=== PATIENT | female | born 1990 | race Caucasian/White ===

== ENCOUNTER 2017-01-04 19:59 | Emergency (ER) | payer OTHER ==
[~2017-01-04] VITALS: Ht 170.2 cm; Wt 82.1 kg
[~2017-01-04 19:59] MED LIST: CEPHALEXIN500 MG PO; IBUPROFEN600 MG PO; KEFLEX500 MG PO; NORCO 5-325 TA1 EACH PO; PNV 29-1 TABLE1 EACH PO; PRENATAL-FOLIC1 EACH PO; PYRIDIUM200 MG PO; UNISOM SLEEP AI25 MG PO; VITAMIN B-650 MG PO
[2017-01-04] MEDS ORDERED: PYRIDIUM200 MG PO (21:28)
[2017-01-04] MEDS ORDERED: KEFLEX500 MG PO (21:28)
== END 2017-01-04 21:44 | disposition home or self-care (01) ==
LOC: ED 19:59
DX: N39.0 Urinary tract infection, site not specified (principal); F17.200 Nicotine dependence, unspecified, uncomplicated
CPT/HCPCS: 81001; 84703; 87077; 87088; 87186; 99282

== ENCOUNTER 2017-11-28 18:38 | Emergency (ER) | payer OTHER ==
[~2017-11-28] VITALS: Ht 170.2 cm; Wt 82.1 kg
[2017-11-28] MEDS ORDERED: NEXPLANON68 MG SUB-Q (18:48)
[2017-11-28] MEDS ORDERED: AUGMENTIN 875-1 EACH PO (19:28)
== END 2017-11-28 19:52 | disposition home or self-care (01) ==
LOC: ED 18:38
PROC: 0HQ1XZZ Repair Face Skin, External Approach (ICD-10-PCS; principal; 2017-11-28)
DX: S01.451A Open bite of right cheek and temporomandibular area, initial encounter (principal); S01.411A Laceration without foreign body of right cheek and temporomandibular area, initial encounter; F17.200 Nicotine dependence, unspecified, uncomplicated; Z79.899 Other long term (current) drug therapy; W54.0XXA Bitten by dog, initial encounter
CPT/HCPCS: 12011; 99283

== ENCOUNTER 2018-08-29 23:23 | Emergency (ER) | payer OTHER ==
[~2018-08-29] VITALS: Ht 170.2 cm; Wt 90.7 kg
[~2018-08-29 23:23] MED LIST changes: +AUGMENTIN 875-1 EACH PO; +NEXPLANON68 MG SUB-Q
== END 2018-08-30 00:36 | disposition home or self-care (01) ==
LOC: ED 23:23
DX: S93.402A Sprain of unspecified ligament of left ankle, initial encounter (principal); F17.200 Nicotine dependence, unspecified, uncomplicated; W01.0XXA Fall on same level from slipping, tripping and stumbling without subsequent striking against object, initial encounter
CPT/HCPCS: 73610; 96372; 99283-25; J1885

== ENCOUNTER 2018-11-14 17:42 | Emergency (ER) | payer OTHER ==
[~2018-11-14] VITALS: Ht 170.2 cm; Wt 92.1 kg
== END 2018-11-14 20:22 | disposition home or self-care (01) ==
LOC: ED 17:42
DX: S30.1XXA Contusion of abdominal wall, initial encounter (principal); F17.200 Nicotine dependence, unspecified, uncomplicated; W22.8XXA Striking against or struck by other objects, initial encounter; Y92.828 Other wilderness area as the place of occurrence of the external cause
CPT/HCPCS: 71045; 74177; 80053; 81001; 83690; 84703; 85025; 96374; 96375; 99284-25; J2270; J2405; J3010; Q9967

== ENCOUNTER 2019-10-05 00:04 | Inpatient (IN) | payer OTHER ==
[~2019-10-05] VITALS: Ht 170.2 cm; Wt 110.0 kg
[2019-10-05] MEDS ORDERED: PRENATAL VITAM1 EACH PO (01:18)
--- NOTE | 2019-10-05 08:12 | PR ---
[facility] [address] [facility] [place], [place] [address] Signed Progress Notes IP Datetime Report Generated by CPN: 10/05/2019 08:12 PROGRESS NOTES: [id number] Impression: Normal progression of labor Procedures: Artificial ROM Plan: Continue present management; Anticipate Vaginal Delivery VITAL SIGNS: [id number] Vital Signs: Reviewed; Within Normal Limits EXAM: [id number] Dilatation: 3.0 Effacement: 60 Station: -2 MEMBRANES: [id number] Membrane Status: Ruptured Amniotic Fluid Color: Clear ROM Note: AROM with small amount clear fluid Comments: Doing well, would like Epidural later Fetus A: [id number] FHR Baseline: 125 Variability: Moderate 6-25bpm Accelerations: 15X15 Presentation: Vertex Fetus B: [id number] Signing Physician: Steve Medrano MD Copies: ~ *Electronically Signed* 10/05/19811 STEVE MEDRANO MD PATIENT NAME: STEVEDOUGLASROMA OSMAR PROGRESS NOTE DATE OF : [birth year] PHYSICIAN: STEVE MEDRANO MD RPT #: [id number] REPORT IS CONFIDENTIAL AND NOT TO BE RELEASED WITHOUT AUTHORIZATION
--- NOTE | 2019-10-05 12:26 | PR ---
[facility] [address] [facility] [place], [place] [address] Signed Progress Notes IP Datetime Report Generated by CPN: 10/05/2019 12:26 PROGRESS NOTES: [id number] Impression: Normal progression of labor Procedures: Epidural Placement Plan: Continue present management; Anticipate Vaginal Delivery VITAL SIGNS: [id number] Vital Signs: Reviewed; Within Normal Limits EXAM: [id number] Dilatation: 7.0 Effacement: 80 Station: -1 Uterine Contractions: every 2-4 minutes MEMBRANES: [id number] Membrane Status: Ruptured Amniotic Fluid Color: Clear ROM Note: AROM with small amount clear fluid Comments: Comfortable with Epidural. Fetus A: [id number] FHR Baseline: 120 Variability: Moderate 6-25bpm Accelerations: 15X15 Presentation: Vertex Fetus B: [id number] Signing Physician: Jorge Alberto Medrano MD Copies: ~ *Electronically Signed* 10/05/19 1226 JORGE ALBERTO MEDRANO MD PATIENT NAME: JORGE ALBERTOROMA PROGRESS NOTE DATE OF : [birth year] PHYSICIAN: JORGE ALBERTO MEDRANO MD RPT #: [id number] REPORT IS CONFIDENTIAL AND NOT TO BE RELEASED WITHOUT AUTHORIZATION
--- NOTE | 2019-10-05 13:14 | PR ---
[facility] [address] [place], [place] [address] Signed Progress Notes IP Datetime Report Generated by CPN: 10/05/2019 13:14 PROGRESS NOTES: [id number] Impression: Normal progression of labor Procedures: Epidural Placement Plan: Continue present management; Anticipate Vaginal Delivery VITAL SIGNS: [id number] Vital Signs: Reviewed; Within Normal Limits EXAM: [id number] Dilatation: 10.0 Effacement: 100 Station: 0 Uterine Contractions: every 2-3 minutes MEMBRANES: [id number] Membrane Status: Ruptured Amniotic Fluid Color: Clear ROM Note: AROM with small amount clear fluid Comments: Complete, but tried to push, unable to feel anything or push effectively. Epidural decreased to 1/2 rate. WIll allow to labor before pushing, since so numb. Discussed with patient; let us know as soon as feeling anything. Fetus A: [id number] FHR Baseline: 120 Variability: Moderate 6-25bpm Accelerations: 15X15 Presentation: Vertex Fetus B: [id number] Signing Physician: Jorge Alberto Medrano MD Copies: ~ *Electronically Signed* 10/05/19 1314 JORGE ALBERTO MEDRANO MD PATIENT NAME: ROMA AZUL PROGRESS NOTE DATE OF : [birth year] PHYSICIAN: JORGE ALBERTO MEDRANO MD RPT #: [id number] REPORT IS CONFIDENTIAL AND NOT TO BE RELEASED WITHOUT AUTHORIZATION
--- NOTE | 2019-10-06 07:48 | PR ---
[facility] [address] [facility] [place] [address] Signed PP Progress Notes Datetime Report Generated by CPN: 10/06/2019 07:48 SUBJECTIVE: [id number] Pain: Within normal limits Nausea/Vomiting: Denies Vital Signs: [id number] Vital Signs: Reviewed; Within Normal Limits Notable Details: PP Hgb/Hct = 11.6/34.0 EXAM: [id number] Abdomen/Uterus: Normal Lochia: Normal Extremities: Normal IMPRESSION/PLAN/PROCEDURES: [id number] Impression: Normal progression Plan: Discharge Procedures: None Progress Notes: Doing well, without complaint, wants to go home. Signing Physician: Jorge Alberto Medrano MD Copies: ~ *Electronically Signed* 10/06/19 0748 JORGE ALBERTO MEDRANO MD PATIENT NAME: ROMA AZUL PROGRESS NOTE DATE OF : [birth year] PHYSICIAN: JORGE ALBERTO MEDRANO MD RPT #: [id number] REPORT IS CONFIDENTIAL AND NOT TO BE RELEASED WITHOUT AUTHORIZATION
== END 2019-10-06 15:44 | disposition home or self-care (01) | DRG 807 ==
LOC: FBC 00:04
PROVIDERS: ADMIT General Practice
PROC: 10E0XZZ Delivery of Products of Conception, External Approach (ICD-10-PCS; principal; 2019-10-05)
PROC: 10907ZC Drainage of Amniotic Fluid, Therapeutic from Products of Conception, Via Natural or Artificial Opening (ICD-10-PCS; 2019-10-05)
PROC: 00HU33Z Insertion of Infusion Device into Spinal Canal, Percutaneous Approach (ICD-10-PCS; 2019-10-05)
PROC: 3E0R3BZ Introduction of Anesthetic Agent into Spinal Canal, Percutaneous Approach (ICD-10-PCS; 2019-10-05)
DX: O69.1XX0 Labor and delivery complicated by cord around neck, with compression, not applicable or unspecified (principal); Z37.0 Single live birth; Z3A.39 39 weeks gestation of pregnancy
CPT/HCPCS: 01960; 36415; 85027; A9270; J2590; J2795

== ENCOUNTER 2022-01-17 12:23 | Emergency (ER) | payer OTHER ==
[~2022-01-17] VITALS: Ht 170.2 cm; Wt 72.8 kg
[~2022-01-17 12:23] MED LIST changes: +PRENATAL VITAM1 EACH PO
[2022-01-17] MEDS ORDERED: ZOLOFT50 MG PO (12:41)
[2022-01-17] MEDS ORDERED: PENICILLIN V P500 MG PO (12:49)
== END 2022-01-17 12:56 | disposition home or self-care (01) ==
LOC: ED 12:23
DX: K04.7 Periapical abscess without sinus (principal); F17.200 Nicotine dependence, unspecified, uncomplicated
CPT/HCPCS: 99283

== ENCOUNTER 2022-01-19 09:56 | Emergency (ER) | payer OTHER ==
[~2022-01-19] VITALS: Ht 170.2 cm; Wt 72.6 kg
[~2022-01-19 09:56] MED LIST changes: +PENICILLIN V P500 MG PO; +ZOLOFT50 MG PO
--- OUTSIDE RECORDS SUMMARY | 2022-01-19 10:04 | XMS ---
PreManage Notification: ROMA AZUL Security 3D Animator Events No recent Security Events currently on file CRITERIA MET - [facility] - 2 Visits in 30 Days CARE PROVIDERS There are no care providers on record at this time. Jefry has no Care Guidelines for this patient. [facility] VISIT COUNT (12 MO.) [address] [facility] [place] TOTAL 2 NOTE: Visits indicate total known visits. [facility] VIS[facility] TRACKING (12 MO.) 01/19/2022 09:[address] [facility] [place] TYPE: Emergency COMPLAINT: - SKIN PROBLEM 01/17/2022 12:25 [facility] [place] TYPE: Emergency COMPLAINT: - DENTAL ISSUE INPATIENT VISIT TRACKING (12 MO.) No inpatient visits to display in this time frame [email or web address]
[2022-01-19] MEDS ORDERED: CLEOCIN HCL300 MG PO (11:37)
[2022-01-19] MEDS ORDERED: HYDROCODON-ACE1 EA10 PO (11:37)
== END 2022-01-19 11:54 | disposition home or self-care (01) ==
LOC: ED 09:56
PROC: 0C9WXZ0 Drainage of Upper Tooth, External Approach, Single (ICD-10-PCS; principal; 2022-01-19)
DX: K04.7 Periapical abscess without sinus (principal); F17.200 Nicotine dependence, unspecified, uncomplicated
CPT/HCPCS: 10160; 99282-25; A9270

== ENCOUNTER 2022-01-23 21:16 | Emergency (ER) | payer OTHER ==
[~2022-01-23] VITALS: Ht 170.2 cm; Wt 72.6 kg
[~2022-01-23 21:16] MED LIST changes: +CLEOCIN HCL300 MG PO; +HYDROCODON-ACE1 EA10 PO
[2022-01-24] MEDS ORDERED: HYDROCODON-ACE1 EA10 PO (00:42)
[2022-01-24] MEDS ORDERED: AMOX TR-K CLV1 EAC1 PO (00:42)
== END 2022-01-24 01:04 | disposition home or self-care (01) ==
LOC: ED 21:16
DX: K04.7 Periapical abscess without sinus (principal); F17.200 Nicotine dependence, unspecified, uncomplicated
CPT/HCPCS: 36415; 70487; 80053; 85025; 96375; 96376; 99283-25; J0696; J1170; J2405; J7030; Q9967

== ENCOUNTER 2023-07-21 17:19 | Emergency (ER) | payer OTHER ==
[~2023-07-21] VITALS: Ht 170.2 cm; Wt 64.4 kg
[~2023-07-21 17:19] MED LIST changes: +AMOX TR-K CLV1 EAC1 PO; +BENZTROPINE MESY1 MG PO; +CYCLOBENZAPRINE10 MG PO; +LAMICTAL25 MG PO; +MELOXICAM15 MG PO
[2023-07-21 17:32] LABS: RBC 4.03 M/ul (4.3-5.7)
[2023-07-21 17:34] LABS: BASOPHILS 0.8 % (0-2); EOSINOPHILS 2.2 % (0-6); HEMATOCRIT 38.9 % (35.0-50.0); HEMOGLOBIN 13.2 g/dL (12.0-18.0); MCH 32.8 (27-36); MCV 96.6 fl (81-99); MONOCYTES 5.3 % (0-12); NEUTROPHILS 48.7 % (39-80); PLATELET COUNT 227 K/uL (140-440); RDW 12.9 (10.5-15.0)
[2023-07-21] MEDS ORDERED: ondansetron HCL 4 MG/2 ML VIAL IV ONE (17:45)
[2023-07-21 17:54] LABS: ACETAMINOPHEN 0 ug/mL (10-30); ALBUMIN 3.2 g/dL (3.4-5.0); ALBUMIN/GLOBULIN RATIO 0.91 (1.1-2.4); ALCOHOL, MEDICAL 171 ng/dL (<3); ALKALINE PHOSPHATASE 41 U/L (46-116); ALT (SGPT) 14 U/L (14-59); ANION GAP 15.7 (7-21); AST (SGOT) 12 U/L (15-37); BILIRUBIN, TOTAL 0.3 ng/dL (0.2-1.0); BUN/CREATININE RATIO 7.79 (6.0-28.6); CALCIUM 8.3 mg/dL (8.5-10.1); CARBON DIOXIDE 24 mmol/L (21-32); CHLORIDE 108 mmol/L (98-107); CREATININE, SERUM 0.77 mg/dL (0.55-1.02); GLOMERULAR FILTRATION RATE,EST 105 mL/min (>60); POTASSIUM 3.7 mmol/L (3.5-5.1); PROTEIN, TOTAL 6.7 g/dL (6.4-8.2); SALICYLATE 3.5 mg/dL (2.8-20.0); UREA NITROGEN 6 mg/dL (7-18)
[2023-07-21 17:55] LABS: BILIRUBIN, URINE NEGATIVE (negative); BLOOD/HGB, URINE NEGATIVE (Negative); KETONE, URINE NEGATIVE (Negative); LEUK ESTERASE, URINE NEGATIVE (negative); NITRITE, URINE NEGATIVE (negative); PH, URINE 6.5 (5-7)
[2023-07-21 17:56] LABS: PREGNANCY TEST, URINE NEGATIVE (NEG)
[2023-07-21 18:11] LABS: AMPHETAMINES, URINE NEGATIVE (NEGATIVE); BARBITURATES, URINE NEGATIVE (NEGATIVE); BENZODIAZEPINE, URINE NEGATIVE (NEGATIVE); BUPRENORPHINE, URINE NEGATIVE (NEGATIVE); CANNABINOID, URINE NEGATIVE (NEGATIVE); COCAINE, URINE NEGATIVE (NEGATIVE); ECSTASY, URINE NEGATIVE (NEGATIVE); FENTANYL, URINE NEGATIVE (NEGATIVE); METHADONE, URINE NEGATIVE (NEGATIVE); OPIATES, URINE NEGATIVE (NEGATIVE); OXYCODONE, URINE NEGATIVE (NEGATIVE); PHENCYCLIDINE, URINE NEGATIVE (NEGATIVE)
[2023-07-21 18:45] LABS: INFLUENZA B NAA NEGATIVE (NEGATIVE); RESPIRATORY SYNCYTIAL VIR NAA NEGATIVE (NEGATIVE)
[2023-07-21 20:44] LABS: AMPHETAMINES, URINE NEGATIVE (NEGATIVE); BARBITURATES, URINE NEGATIVE (NEGATIVE); BENZODIAZEPINE, URINE NEGATIVE (NEGATIVE); BUPRENORPHINE, URINE NEGATIVE (NEGATIVE); CANNABINOID, URINE NEGATIVE (NEGATIVE); COCAINE, URINE NEGATIVE (NEGATIVE); ECSTASY, URINE NEGATIVE (NEGATIVE); FENTANYL, URINE NEGATIVE (NEGATIVE); METHADONE, URINE NEGATIVE (NEGATIVE); OPIATES, URINE NEGATIVE (NEGATIVE); OXYCODONE, URINE NEGATIVE (NEGATIVE); PHENCYCLIDINE, URINE NEGATIVE (NEGATIVE)
[2023-07-21] MEDS ORDERED: D5W 1/2 NS + 20 KCL 1,000 ML IV SCH (20:45)
--- NOTE | 2023-07-21 21:10 | EKG ---
[facility] [address] [facility] [place] [address] Signed Sinus bradycardia Low voltage QRS Borderline ECG No previous ECGs available Confirmed by Fabian Ibarra MD () on 07/21/2023 9:10:30 PM Electronically Signed By: FABIAN IBARRA MD 07/21/232109 PATIENT NAME: ROMA AZULELLE Electrocardiogram DATE OF : [birth year] PHYSICIAN: FABIAN IBARRA MD REPORT #: [id number] REPORT IS CONFIDENTIAL AND NOT TO BE RELEASED WITHOUT AUTHORIZATION
[2023-07-22 13:14] VITALS: BP 106/69
== END 2023-07-22 13:15 | disposition home or self-care (01) ==
LOC: ED 17:19
PROVIDERS: Emergency Medicine; Internal Medicine
DX: R45.851 Suicidal ideations (principal); F10.129 Alcohol abuse with intoxication, unspecified; F17.200 Nicotine dependence, unspecified, uncomplicated; Z79.899 Other long term (current) drug therapy
CPT/HCPCS: 36415; 51701; 71045; 80053; 80307; 81003; 82803; 84703; 85025; 87502; 93005; 93010; 99285-25; G0480; J2405; J3480; U0002

== ENCOUNTER 2023-12-09 06:48 | Day surgery (SDC) | payer OTHER ==
[~2023-12-09] VITALS: Ht 170.2 cm; Wt 81.8 kg
[2023-12-09] MEDS ORDERED: ondansetron HCL 4 MG/2 ML VIAL IV ONE (07:15)
[2023-12-09] MEDS ORDERED: DOXYCYCLINE HYCLATE 100 MG CAP PO ONE (07:15)
[2023-12-09] MEDS ORDERED: LIDOCAINE HCL 1% 5 ML SDV INJ ONE (07:15)
[2023-12-09] MEDS ORDERED: miSOPROStoL 200 MCG TAB SL ONE (07:15)
--- NOTE | 2023-12-09 07:19 | NUR ---
VISITED DURING SPIRITUAL CARE ROUNDS. PT DENIED IMMEDIATE NEEDS, NO INDICATIONS OF ANXIETY OR NERVOUSNESS. PROVIDED SUPPORTIVE PRESENCE, HOSPITALITY, PRAYER. PT EXPRESSED GRATITUDE.
[2023-12-09 07:23] VITALS: BP 113/66
[2023-12-09] MEDS ORDERED: LACTATED RINGER'S 1,000 ML IV SCH (07:30)
[2023-12-09] MEDS ORDERED: IBLOOD GLUCOSE TEST STRIP 1 EA TEST VI PRN ×2 (07:30→09:45)
[2023-12-09] MEDS ORDERED: fentaNYL citrate 100 MCG/2 ML VIAL ONE (08:17)
[2023-12-09] MEDS ORDERED: propofoL 200 MG/20 ML VIAL ONE (08:18)
[2023-12-09] MEDS ORDERED: LIDOCAINE HCL 2% 5 ML SDV ONE (08:18)
[2023-12-09] MEDS ORDERED: ondansetron HCL 4 MG/2 ML VIAL ONE (08:18)
[2023-12-09] MEDS ORDERED: ACETAMINOPHEN 1,000 MG/100 ML VIAL ONE (08:18)
[2023-12-09] MEDS ORDERED: DEXAMETHASONE SOD PHOS 4 MG/ML VIAL ONE (08:18)
[2023-12-09 08:24] LABS: AMPHETAMINES, URINE NEGATIVE (NEGATIVE); BARBITURATES, URINE NEGATIVE (NEGATIVE); BENZODIAZEPINE, URINE NEGATIVE (NEGATIVE); BUPRENORPHINE, URINE NEGATIVE (NEGATIVE); CANNABINOID, URINE POSITIVE (NEGATIVE); COCAINE, URINE POSITIVE (NEGATIVE); ECSTASY, URINE NEGATIVE (NEGATIVE); FENTANYL, URINE NEGATIVE (NEGATIVE); METHADONE, URINE NEGATIVE (NEGATIVE); OPIATES, URINE NEGATIVE (NEGATIVE); OXYCODONE, URINE NEGATIVE (NEGATIVE); PHENCYCLIDINE, URINE NEGATIVE (NEGATIVE)
[2023-12-09] MEDS ORDERED: METHYLERGONOVINE MALEATE 0.2 MG/ML AMP ONE (08:38)
[2023-12-09] MEDS ORDERED: OXYTOCIN 10 UNITS/ML VIAL ONE (08:39)
[2023-12-09] MEDS ORDERED: dexmedeTOMIDine HCl 200 MCG/2 ML VIAL ONE (08:58)
[2023-12-09] MEDS ORDERED: PHENYLEPHRINE HCL 10 MG/ML VIAL ONE (09:19)
[2023-12-09] MEDS ORDERED: SODIUM CHLORIDE 0.9% 20 ML IV ONE (09:21)
[2023-12-09] MEDS ORDERED: TRANEXAMIC ACID 1,000 MG/10 ML AMP ONE (09:25)
--- NOTE | 2023-12-09 09:41 | NUR ---
12/09/23 0941 Daisy Watts 0936-PATIENT ARRIVED TO PACU ON RA RR EVEN. PATIENT REACTIVE TO VERBAL STIMULI EYES CLOSED. PATIENT SHIVERING REPORTS "COLD" WARM BLANKETS AND FADIA PAW WARMER APPLIED. SR. IVF INFUSING LR WITH 30 PITOCIN. RIMA PAD SMALL AMT OF DRAINAGE. 0941-PATIENT NO LONGER SHIVERING SLEEPING RA 100% RR EVEN.
[2023-12-09] MEDS ORDERED: MEPERIDINE HCL 25 MG/1 ML VIAL IV PRN (09:45)
[2023-12-09] MEDS ORDERED: MORPHINE SULFATE 10 MG/ML VIAL IV PRN (09:45)
[2023-12-09] MEDS ORDERED: MAGNESIUM HYDROXIDE/AL HYDROX 30 ML CUP PO PRN (09:45)
[2023-12-09] MEDS ORDERED: METHYLERGONOVINE MALEATE 0.2 MG PO ONE (09:45)
[2023-12-09] MEDS ORDERED: NALOXONE HCL 0.4 MG SYR IV PRN (09:45)
[2023-12-09] MEDS ORDERED: FAMOTIDINE 20 MG TAB PO PRN (09:45)
[2023-12-09] MEDS ORDERED: fentaNYL citrate 50 MCG/ML SDV IV PRN (09:45)
[2023-12-09] MEDS ORDERED: METOCLOPRAMIDE HCL 10 MG/2 ML SDV IV PRN (09:45)
[2023-12-09] MEDS ORDERED: KETOROLAC TROMETHAMINE 30 MG/ML VIAL IV PRN (09:45)
[2023-12-09] MEDS ORDERED: ondansetron HCL 4 MG/2 ML VIAL IV PRN ×2 (09:45)
[2023-12-09 10:10] VITALS: BP 100/60
[2023-12-09] MEDS ORDERED: OXYCODONE/APAP 5/325 TAB PO ONE (10:30)
--- NOTE | 2023-12-09 10:40 | NUR ---
1010: PATIENT BACK IN DAY SURGERY ROOM FROM PACU. DROWSY, BUT GRIMACING INTERMITTENTLY. C/O PAIN 7/10 IN ABDOMEN. DESCRIBES PAIN CRAMPING. PERIPAD IN PLACE WITH SMALL AMOUNT OF RED DRAINAGE. IV SITE WNL. SCDs ON. VS CHECKED. CALL LIGHT WITHIN REACH.
--- NOTE | 2023-12-09 10:41 | NUR ---
1025: PATIENT GIVEN PUDDING AND JULIETH CRACKER TO EAT. TOLERATING WATER. 1035: MEDICATED FOR PAIN WITH 1 TAB OF PERCOCET. CALL LIGHT WITHIN REACH.
[2023-12-09 11:15] VITALS: BP 102/57
--- NOTE | 2023-12-09 11:36 | NUR ---
1115-PT LAYING IN BED WITH EYES CLOSED. PT OPENS EYES TO VERBAL STIMULI. RESP EVEN AND UNLABORED. RATES PAIN 1/10 AND DENIES NAUSEA. NO OTHER NEEDS AT THIS TIME. CALL LIGHT WITHIN REACH.
[2023-12-09 12:14] VITALS: BP 103/65
--- NOTE | 2023-12-09 12:27 | NUR ---
1215-PT LAYING IN BED WITH EYES CLOSED. PT OPENS EYES AND ANSWERS QUESTIONS WITH VERBAL STIMULI. RESP EVEN AND UNLABORED. WHEN ASKED ABOUT PAIN PT STATES "ITS FINE". NO OTHER NEEDS AT THIS TIME. CALL LIGHT WITHIN REACH.
[2023-12-09] MEDS ORDERED: SIMETHICONE 125 MG TABLET CHEWABLE PO SCH (13:00)
[2023-12-09 13:16] VITALS: BP 102/60
--- NOTE | 2023-12-09 13:35 | NUR ---
1316-PT LAYING IN BED WITH EYES CLOSED. OPENS EYES WITH VERBAL STIMULI. RESP EVEN AND UNLABORED. RATES PAIN 4/10 AND WOULD LIKE MEDICATION. SMALL AMOUNT OF DRAINAGE ON PERIPAD. 1321-PAIN MEDICATION GIVEN PER EMAR. 1323-PT UP TO RESTROOM WITH 1 RN ASSIST. GAIT UNSTEADY BUT TOLERATED WELL. STATES A LITTLE DIZZY. PT VOIDS 100ML OF URINE. 1330-PT BACK TO ROOM AND LAYING DOWN. PT STATES FEELS A LITTLE WEAK. NO OTHER NEEDS AT THIS TIME. CALL LIGHT WITHIN REACH.
[2023-12-09] MEDS ORDERED: IBUPROFEN 800 MG TAB PO SCH (14:00)
--- NOTE | 2023-12-09 16:55 | NUR ---
LE 1445-PT FEELING BETTER. PT GETTING DRESSED. CALL LIGHT WITHIN REACH. LE 1500-WENT OVER DISCHARGE INSTRUCTIONS WITH PT. WENT OVER POSTOP MEDICATIONS. ALL QUESTIONS ANSWERED. PT AMBULATES TO WHEELCHAIR AND RIDE PROVIDED TO FRONT OF HOSPITAL WHERE BOYFRIEND WAS WAITING WITH THE CAR.
--- NOTE | 2023-12-15 17:19 | PATH ---
[facility] [address] [place], [place] [address] Signed SPECIMEN(S): A RETAINED PRODUCTS OF CONCEPTION SPECIMEN SOURCE: A. RETAINED PRODUCTS OF CONCEPTION CLINICAL HISTORY: Incomplete miscarriage. FINAL PATHOLOGIC DIAGNOSIS: Products of conception: - Immature chorionic villi present and decidua. - No tissue identified. - No evidence of trophoblastic disease. K MICROSCOPIC EXAMINATION: Histologic sections of all submitted blocks are examined by light microscopy. These findings, together with the gross examination, support the pathologic diagnosis. GROSS DESCRIPTION: The specimen, labeled and designated "Steve, " and designated on the requisition "retained products of conception," is received in formalin and consists of portion of red-brown soft tissue (7.0 x 6.0 x 2.4 cm in aggregate) and fragmented portion of adame-pink to red-brown possible placental tissue (9.5 x 9.0 x 3.0 cm in aggregate). No parts are gross identified. Water Maintenance Supervisor sections are submitted in cassette A1-A2. AC (under the direct supervision of a pathologist) The Gross Description was prepared using a voice recognition system. The report was reviewed for accuracy; however, sound-alike word errors, addition and/or deletions may occur. If there is any question about this report, please contact Client Services. ADDITIONAL NOTES: Immunohistochemical and/or in situ hybridization studies if performed in this case included appropriate positive controls that reacted as expected. This test was developed and its performance characteristics determined by [facility]. It has not been cleared or approved by the U.S. Food and Drug Administration. The FDA has determined that such clearance or approval is not PATIENT NAME: ROMA AZUL PATHOLOGY DATE OF : [birth year] REPORT #: [id number] PHYSICIAN: KATIE GAO PCP: LILLIAN DA SILVA [address] ABSTRACTOR REPORT IS CONFIDENTIAL AND NOT TO BE RELEASED WITHOUT AUTHORIZATION [facility] [address] [facility] [place] [address] Signed necessary. This test is used for clinical purposes. It should not be regarded as investigational or for research. [facility] is certified under the Clinical Laboratory Improvement Amendments of 1988 (CLIA) as qualified to perform high complexity clinical laboratory testing. PERFORMING LABORATORY: Technical component was performed by [facility], [address] [place] [id number] (CLIA# [id number]). Professional interpretation was performed by [email or web address] - [facility] [address] [address] (CLIA#:[id number]). Diagnostician: Salvador Goldstein MD Pathologist Electronically Signed 12/15/2023 Copies: ~ PATIENT NAME: ROMA AZUL PATHOLOGY DATE OF : [birth year] REPORT #: [id number] PHYSICIAN: KATIE PATHOLOGY PCP: LILLIAN DA SILVA NP REPORT IS CONFIDENTIAL AND NOT TO BE RELEASED WITHOUT AUTHORIZATION
--- NOTE | 2023-12-17 14:38 | EKG ---
[facility] [address] [facility] [place] [facility] [place] [address] Signed Sinus bradycardia Septal infarct , age undetermined Abnormal ECG When compared with ECG of 21-JUL-2023 17:23, Septal infarct is now present Confirmed by THIEN CUELLAR MD ([id number]) on 12/17/2023 2:38:24 PM Electronically Signed By: THIEN CUELLAR 12/17/23 1438 PATIENT NAME: DOUGLAS AZULRA PRASAD Electrocardiogram DATE OF : [birth year] PHYSICIAN: THIEN CUELLAR REPORT #: [id number] REPORT IS CONFIDENTIAL AND NOT TO BE RELEASED WITHOUT AUTHORIZATION
--- NOTE | 2024-01-05 22:20 | OR ---
[facility] [address] [place], [place] [address] Signed DATE OF OPERATION: 12/09/2023 SURGEON: Ling Carrera DO PREOPERATIVE DIAGNOSIS: Incomplete 2nd trimester miscarriage. POSTOPERATIVE DIAGNOSIS: Incomplete 2nd trimester miscarriage. PROCEDURE PERFORMED: Suction dilation and curettage. ANESTHESIA: General. ESTIMATED BLOOD LOSS: 150 mL. SPECIMEN: Products of conception including placenta and membranes. FINDINGS: Bedside ultrasound and bimanual exam confirms prior passage of the previously noted head likely in the day surgery toilet. This was flushed by the patient. Complete evacuation of the placenta and membranes at the end of procedure. Uterus was firm, hemostatic and involuted. She did receive a dose of tranexamic acid in the OR. COMPLICATIONS: None. INDICATIONS: Ms. Wilson is a very pleasant 33-year-old female, who presented to the office yesterday with incomplete 2nd trimester miscarriage. Ultrasound confirmed retention of placenta and head with prior evacuation of the body and limbs. The patient was consented for D and C of remaining products of conception. Risks, benefits, and alternatives were discussed in detail with the patient. The patient understands and wished to proceed with the procedure. TECHNIQUE: Electronically Signed By: LING CARRERA DO (JD) 01/05/24 2220 PATIENT NAME: ROMA WILSON OPERATIVE REPORT DATE OF : [birth year] REPORT #: [id number] PHYSICIAN: LING CARRERA DO (JD) PCP: LILLIAN DA SILVA NP REPORT IS CONFIDENTIAL AND NOT TO BE RELEASED WITHOUT AUTHORIZATION [facility] [address] [facility] [place], [place] [address] Signed The patient was taken to the OR. A time-out was performed to confirm correct patient, correct procedure. General anesthesia was adequately established. The patient is prepped and draped in dorsal lithotomy position with feet in Yellofin stirrups. ICPs were on running. No preoperative heparin was indicated. The patient did receive doxycycline 200 mg p.o., misoprostol 400 mcg buccal, and Zofran preoperatively. Nick catheter was inserted. A weighted speculum was placed in the vagina. A bedside ultrasound was performed that demonstrated retained placenta, but no evidence of previously noted head. Bimanual exam was performed that also confirmed prior passage of the head likely in the day surgery commode that was flushed by the patient. The cervix was grasped with a ring forceps and the placenta was grasped with a ring forceps and very gently removed intact. A 12 mm suction curette was selected and this was advanced to the fundus and suction obtained to the green zone. Circumferential curettage was performed in several passes with noted involution and no additional products of conception after the initial pass. Pitocin was administered as well as tranexamic acid 1 g IV. Bimanual pressure was held. Repeat bedside ultrasound was performed that demonstrated no additional products of conception. One final pass with suction curette was performed. The patient was then taken to PACU in good and stable condition. Sponge, needle and instrument counts were correct x2 at the end of the procedure. DO TEMITOPE Harris/TYESHAL /[id number] Copies: ~ Electronically Signed By: LING LARES) DO MARKO 01/05/24 2220 PATIENT NAME: ROMA WILSON OPERATIVE REPORT DATE OF : [birth year] REPORT #: [id number] PHYSICIAN: LING CARRERA DO (JD) PCP: LILLIAN DA SILVA NP REPORT IS CONFIDENTIAL AND NOT TO BE RELEASED WITHOUT AUTHORIZATION
== END 2023-12-09 14:00 | disposition home or self-care (01) ==
LOC: DS 06:48 → OPS 06:48 → DS 09:30 → OPS 09:30
PROVIDERS: ATTEND Obstetrics & Gynecology
PROC: 10D07Z8 Extraction of Products of Conception, Other, Via Natural or Artificial Opening (ICD-10-PCS; principal; 2023-12-09 09:30)
DX: O03.4 Incomplete spontaneous abortion without complication (principal); F14.10 Cocaine abuse, uncomplicated; E78.5 Hyperlipidemia, unspecified; J45.20 Mild intermittent asthma, uncomplicated; Z79.899 Other long term (current) drug therapy
CPT/HCPCS: 00940; 80307; 88305; 93005; 93010; A9270; J0131; J1100; J2001; J2210; J2371; J2405; J2590; J2704; J3010

== ENCOUNTER 2024-04-20 18:37 | Emergency (ER) | payer OTHER ==
[~2024-04-20] VITALS: Ht 170.2 cm; Wt 80.0 kg
[2024-04-20] MEDS ORDERED: LORazepam 2 MG/ML VIAL IM ONE (19:00)
[2024-04-20] MEDS ORDERED: diphenhydrAMINE HCL 50 MG/ML VIAL IM ONE (19:00)
[2024-04-20] MEDS ORDERED: HALOPERIDOL LACTATE 5 MG/ML VIAL IM ONE (19:00)
[2024-04-20 19:04] LABS: BASOPHILS 0.8 % (0-2); EOSINOPHILS 2.9 % (0-6); HEMATOCRIT 38.2 % (35.0-50.0); HEMOGLOBIN 12.8 g/dL (12.0-18.0); LYMPHOCYTES 55.6 % (24-44); MCH 29.5 (27-36); MCHC 33.6 g/dl (30-36); MCV 87.9 fl (81-99); MONOCYTES 6.7 % (0-12); PLATELET COUNT 275 K/uL (140-440); RBC 4.34 M/ul (4.3-5.7); RDW 20.2 (10.5-15.0)
[2024-04-20] MEDS ORDERED: SERTRALINE HCL50 MG PO (19:05)
[2024-04-20] MEDS ORDERED: IRON325 M1 PO (19:05)
[2024-04-20 19:27] LABS: ACETAMINOPHEN 0 ug/mL (10-30); ALBUMIN 3.8 g/dL (3.4-5.0); ALBUMIN/GLOBULIN RATIO 0.95 (1.1-2.4); ALCOHOL, MEDICAL 234 ng/dL (<3); ALKALINE PHOSPHATASE 42 U/L (46-116); ALT (SGPT) 18 U/L (14-59); ANION GAP 17.8 (7-21); AST (SGOT) 15 U/L (15-37); BILIRUBIN, TOTAL 0.1 ng/dL (0.2-1.0); BUN/CREATININE RATIO 13.26 (6.0-28.6); CALCIUM 8.7 mg/dL (8.5-10.1); CARBON DIOXIDE 23 mmol/L (21-32); CHLORIDE 109 mmol/L (98-107); CREATININE, SERUM 0.98 mg/dL (0.55-1.02); GLOMERULAR FILTRATION RATE,EST 78 mL/min (>60); POTASSIUM 3.8 mmol/L (3.5-5.1); PROTEIN, TOTAL 7.8 g/dL (6.4-8.2); SALICYLATE 3.6 mg/dL (2.8-20.0); TSH, 3RD GENERATION 7.426 uIU/mL (0.358-3.740); UREA NITROGEN 13 mg/dL (7-18)
[2024-04-20] MEDS ORDERED: LORazepam 2 MG/ML VIAL IV ONE (19:30)
[2024-04-21 11:14] LABS: BILIRUBIN, URINE NEGATIVE (negative); BLOOD/HGB, URINE NEGATIVE (Negative); KETONE, URINE NEGATIVE (Negative); LEUK ESTERASE, URINE SMALL (negative); NITRITE, URINE NEGATIVE (negative)
[2024-04-21 11:20] LABS: RED BLOOD CELLS, URINE 0-1 /hpf (0-5)
[2024-04-21 11:21] LABS: BACTERIA, URINE RARE /hpf (negative); CASTS, URINE NONE SEEN \\lpf; COLLECTION TYPE, URINE CLEAN CATCH; CRYSTALS, URINE NONE SEEN (0-1+); EPITHELIAL CELLS, URINE SQUAMOUS 4+ /lpf (0-1+); REFLEX CULTURE, URINE No (No)
[2024-04-21 11:33] LABS: AMPHETAMINES, URINE NEGATIVE (NEGATIVE); BARBITURATES, URINE NEGATIVE (NEGATIVE); BENZODIAZEPINE, URINE NEGATIVE (NEGATIVE); BUPRENORPHINE, URINE NEGATIVE (NEGATIVE); CANNABINOID, URINE POSITIVE (NEGATIVE); COCAINE, URINE NEGATIVE (NEGATIVE); ECSTASY, URINE NEGATIVE (NEGATIVE); FENTANYL, URINE NEGATIVE (NEGATIVE); METHADONE, URINE NEGATIVE (NEGATIVE); OPIATES, URINE NEGATIVE (NEGATIVE); OXYCODONE, URINE NEGATIVE (NEGATIVE); PHENCYCLIDINE, URINE NEGATIVE (NEGATIVE)
--- NOTE | 2024-04-21 16:34 | EKG ---
[facility] [address] [facility] [place] [address] Signed Normal sinus rhythm Low voltage QRS Septal infarct (cited on or before 09-DEC-2023) Abnormal ECG When compared with ECG of 09-DEC-2023 07:49, Vent. rate has increased BY 29 BPM QT has lengthened Confirmed by Jayjay Oliveira MD ([id number]) on 04/21/2024 4:34:46 PM Electronically Signed By: JAYJAY OLIVEIRA DO 04/21/24 1634 PATIENT NAME: DOUGLAS AZULRA PRASAD Electrocardiogram DATE OF : [birth year] PHYSICIAN: JAYJAY OLIVEIRA DO REPORT #: [id number] REPORT IS CONFIDENTIAL AND NOT TO BE RELEASED WITHOUT AUTHORIZATION
[2024-04-22 05:54] VITALS: BP 112/62
[2024-04-23 09:47] LABS: TRIIODOTHYRONINE,FREE FREE T3 3.3 pg/mL (2.5-4.3)
== END 2024-04-22 07:15 ==
LOC: ED 18:37
PROVIDERS: Internal Medicine
DX: R45.851 Suicidal ideations (principal); F10.929 Alcohol use, unspecified with intoxication, unspecified; F31.9 Bipolar disorder, unspecified; F17.200 Nicotine dependence, unspecified, uncomplicated; Z79.899 Other long term (current) drug therapy
CPT/HCPCS: 36415; 80053; 80307; 81001; 84439; 84443; 84481; 84703; 85025; 96374; 99285-25; G0480; J1200; J1630; J2060; U0002

== ENCOUNTER 2024-10-28 15:30 | Emergency (ER) | payer OTHER ==
[~2024-10-28] VITALS: Ht 170.2 cm; Wt 93.8 kg
[~2024-10-28 15:30] MED LIST changes: +IRON325 M1 PO; +SERTRALINE HCL50 MG PO
[2024-10-28] MEDS ORDERED: SERTRALINE HCL150 MG PO (15:52)
[2024-10-28] MEDS ORDERED: CALCIUM500 MG PO (15:53)
[2024-10-28] MEDS ORDERED: PRENATAL MULTI1 EAC3 PO (15:53)
[2024-10-28 16:45] VITALS: BP 111/70
== END 2024-10-28 16:44 | disposition home or self-care (01) ==
LOC: ED 15:30
DX: O9A.213 Injury, poisoning and certain other consequences of external causes complicating pregnancy, third trimester (principal); M25.552 Pain in left hip; M25.551 Pain in right hip; R10.31 Right lower quadrant pain; F17.200 Nicotine dependence, unspecified, uncomplicated; Z3A.36 36 weeks gestation of pregnancy; Z79.899 Other long term (current) drug therapy; V59.9XXA Occupant (driver) (passenger) of pick-up truck or van injured in unspecified traffic accident, initial encounter
CPT/HCPCS: 99283

== ENCOUNTER 2024-12-30 04:17 | Inpatient (IN) | payer OTHER ==
[~2024-12-30] VITALS: Ht 170.2 cm; Wt 96.2 kg
[~2024-12-30 04:17] MED LIST changes: +CALCIUM500 MG PO; +PRENATAL MULTI1 EAC3 PO; +SERTRALINE HCL150 MG PO
[2024-12-30] MEDS ORDERED: CALCIUM CARBONATE 500 MG CHEW PO PRN ×2 (04:30→09:15)
[2024-12-30] MEDS ORDERED: PENICILLIN G POTASSIUM 5 MUNITS in SODIUM CHLORIDE 0.9% 100 ML IV ONE (04:30)
[2024-12-30] MEDS ORDERED: MAGNESIUM HYDROXIDE/AL HYDROX 30 ML CUP PO PRN ×2 (04:30→09:15)
[2024-12-30] MEDS ORDERED: LIDOCAINE HCL 1% 30 ML SDV INJ PRN (04:30)
[2024-12-30] MEDS ORDERED: OXYTOCIN/0.9 % SODIUM CHLORIDE 30 UNITS/500 ML BAG IV SCH (04:30)
[2024-12-30] MEDS ORDERED: TERBUTALINE SULFATE 1 MG/ML AMP SUB-Q PRN (04:30)
[2024-12-30 04:41] LABS: MCH 30.8 PG (25.6-32.2); MCHC 33.5 g/dL (32.2-35.5); MCV 91.8 fL (79.4-94.8); RBC 4.0 M/uL (3.93-5.22)
[2024-12-30 04:58] VITALS: BP 115/63
[2024-12-30 05:03] LABS: AMPHETAMINES, URINE NEGATIVE (NEGATIVE); BARBITURATES, URINE NEGATIVE (NEGATIVE); BENZODIAZEPINE, URINE NEGATIVE (NEGATIVE); CANNABINOID, URINE NEGATIVE (NEGATIVE); COCAINE, URINE NEGATIVE (NEGATIVE); ECSTASY, URINE NEGATIVE (NEGATIVE); FENTANYL, URINE NEGATIVE (NEGATIVE); METHADONE, URINE NEGATIVE (NEGATIVE); OPIATES, URINE NEGATIVE (NEGATIVE); OXYCODONE, URINE NEGATIVE (NEGATIVE); PHENCYCLIDINE, URINE NEGATIVE (NEGATIVE)
[2024-12-30 05:17] LABS: ABO O; ANTIBODY SCREEN NEGATIVE; RH POSITIVE
[2024-12-30] MEDS ORDERED: LACTATED RINGER'S 1,000 ML IV SCH (05:30)
[2024-12-30] MEDS ORDERED: LACTATED RINGER'S 1,000 ML IV PRN (05:30)
[2024-12-30] MEDS ORDERED: ROPIVACAINE 0.2% 200 ML BAG ONE (05:35)
[2024-12-30] MEDS ORDERED: ROPIVACAINE 0.2% 200 ML BAG EPIDURAL SCH (06:15)
[2024-12-30] MEDS ORDERED: LACTATED RINGER'S 2,000 ML IV ONE (06:15)
[2024-12-30] MEDS ORDERED: ePHEDrine sulfate 5 MG/ML SYRINGE IV PRN (06:15)
[2024-12-30] MEDS ORDERED: LACTATED RINGER'S 500 ML IV PRN (06:15)
[2024-12-30] MEDS ORDERED: PENICILLIN G POTASSIUM 2.5 MUNITS in DEXTROSE 5% 100 ML IV SCH (08:30)
[2024-12-30] MEDS ORDERED: TRANEXAMIC ACID IN NACL,ISO-OS 0 ML IV ONE (08:32)
[2024-12-30] MEDS ORDERED: IBUPROFEN 600 MG TAB PO PRN (09:15)
[2024-12-30] MEDS ORDERED: OXYTOCIN/0.9 % SODIUM CHLORIDE 500 ML IV SCH (09:15)
[2024-12-30] MEDS ORDERED: ACETAMINOPHEN 325 MG TAB PO PRN (09:15)
[2024-12-30] MEDS ORDERED: HYDROCORTISONE ACETATE 25 MG SUPP PR PRN (09:15)
[2024-12-30] MEDS ORDERED: BENZOCAINE 60 ML AEROSOL TOP PRN (09:15)
[2024-12-30] MEDS ORDERED: MAGNESIUM HYDROXIDE 30 ML UDC PO PRN (09:15)
[2024-12-30] MEDS ORDERED: WITCH HAZEL/GLYCERIN 1 EA PAD TOP PRN (09:15)
[2024-12-30] MEDS ORDERED: LIDOCAINE 2% VISCOUS 6 ML SYR TOP ONE (09:15)
[2024-12-30] MEDS ORDERED: SENNOSIDES/DOCUSATE 1 EA TAB PO SCH (21:00)
== END 2024-12-31 12:30 | disposition home or self-care (01) | DRG 807 ==
LOC: FBCO 04:17 → FBC 04:19
PROVIDERS: ADMIT Obstetrics & Gynecology; ATTEND Obstetrics & Gynecology
PROC: 10E0XZZ Delivery of Products of Conception, External Approach (ICD-10-PCS; principal; 2024-12-30)
PROC: 3E0R3BZ Introduction of Anesthetic Agent into Spinal Canal, Percutaneous Approach (ICD-10-PCS; 2024-12-30)
PROC: 00HU33Z Insertion of Infusion Device into Spinal Canal, Percutaneous Approach (ICD-10-PCS; 2024-12-30)
DX: O99.344 Other mental disorders complicating childbirth (principal); Z37.0 Single live birth; O99.02 Anemia complicating childbirth; F41.8 Other specified anxiety disorders; O99.334 Smoking (tobacco) complicating childbirth; F17.210 Nicotine dependence, cigarettes, uncomplicated; Z3A.39 39 weeks gestation of pregnancy
CPT/HCPCS: 36415; 80307; 85027; 86850; 86900; 86901; A9270; J2540; J7121